=== PATIENT | female | born 1985 | race Caucasian/White ===

== ENCOUNTER 2016-12-20 16:47 | Emergency (ER) | payer MEDICAID ==
[~2016-12-20] VITALS: Ht 160 cm; Wt 84.3 kg
[~2016-12-20 16:47] MED LIST: ALBU8.5H5 INH; DOCU-131 PO; FEXO1TAB25 PO; FLUT100B INH; IBUP-1222 PO; OXYC-302 PO; OXYC-305 PO
[2016-12-20] MEDS ORDERED: SODIUM CHLORIDE FLUSH 10ML SYR IVF ONE (17:00)
[2016-12-20 17:24] LABS: HEMATOCRIT 36.4 % (34.6-47.8); HEMOGLOBIN 12.3 g/dL (11.7-16.4); WHITE BLOOD COUNT 12.7 x10^3/uL (3.4-10)
[2016-12-20 17:30] LABS: ASPARTATE AMINO TRANSFERASE 15 U/L (15-37); BLOOD UREA NITROGEN 12 mg/dL (7-18)
[2016-12-20] MEDS ORDERED: BACITRACIN ZINC OINT 500U/GM, 0.9 GM ONE (19:47)
[2016-12-20 20:02] VITALS: BP 110/72
== END 2016-12-20 20:04 | disposition home or self-care (01) ==
LOC: ED 18:44
DX: N30.01 Acute cystitis with hematuria (principal); J45.909 Unspecified asthma, uncomplicated; Z98.890 Other specified postprocedural states
CPT/HCPCS: 36415; 80053; 81001; 83690; 85025; 87086; 99284

== ENCOUNTER 2017-03-30 18:07 | Emergency (ER) | payer MEDICAID ==
[~2017-03-30] VITALS: Ht 157.5 cm; Wt 88.4 kg
[2017-03-30 18:08] VITALS: BP 130/70
[2017-03-30] MEDS ORDERED: IBUPROFEN 200 MG TABLET ONE (18:53)
[2017-03-30] MEDS ORDERED: IBUPROFEN 200 MG TABLET PO ONE (19:00)
== END 2017-03-30 20:02 | disposition home or self-care (01) ==
LOC: ED 19:55
DX: S83.91XA Sprain of unspecified site of right knee, initial encounter (principal); J45.909 Unspecified asthma, uncomplicated; Z88.0 Allergy status to penicillin; M19.90 Unspecified osteoarthritis, unspecified site; X58.XXXA Exposure to other specified factors, initial encounter; Y93.01 Activity, walking, marching and hiking; Y99.8 Other external cause status; Y92.89 Other specified places as the place of occurrence of the external cause
CPT/HCPCS: 99284

== ENCOUNTER 2018-01-18 10:23 | Emergency (ER) | payer MEDICAID ==
[~2018-01-18] VITALS: Ht 160 cm; Wt 92.4 kg
[2018-01-18 11:35] LABS: BASOPHILS # (AUTO) 0.02 x10^3/uL (0-0.1); BASOPHILS % (AUTO) 0 % (0-1); EOSINOPHILS # (AUTO) 0.36 x10^3/uL (0-0.4); EOSINOPHILS % (AUTO) 5 % (1-7); LYMPHOCYTES # (AUTO) 2.19 x10^3/uL (1-3.4); LYMPHOCYTES % (AUTO) 32 % (22-44); MD NO; MEAN CORPUSCULAR HEMOGLOBIN 28.6 pg (27.0-34.8); MEAN CORPUSCULAR HGB CONC 32.9 g/dL (32.4-35.8); MEAN CORPUSCULAR VOLUME 86.9 fL (80-100); MEAN PLATELET VOLUME 8.1 fL (7.4-10.4); MONOCYTES # (AUTO) 0.36 x10^3/uL (0.2-0.8); MONOCYTES % (AUTO) 5 % (2-9); NEUTROPHILS # (AUTO) 3.96 x10^3/uL (1.8-6.8); NEUTROPHILS % (AUTO) 57 % (42-75); PLATELET COUNT 230 x10^3/uL (130-400); RED BLOOD COUNT 4.57 x10^6/uL (3.82-5.3); RED CELL DISTRIBUTION WIDTH 13.9 % (9.6-15.2)
[2018-01-18 12:06] LABS: ALBUMIN 3.5 g/dL (3.4-5.0); ANION GAP 5 mmol/L (5-15); CALCIUM 8.7 mg/dL (8.5-10.1); CHLORIDE 109 mmol/L (98-107); CREATININE 0.64 mg/dL (0.55-1.02)
[2018-01-18 12:45] VITALS: BP 104/72
== END 2018-01-18 13:10 | disposition home or self-care (01) ==
LOC: ED 12:16
DX: B34.9 Viral infection, unspecified (principal); G40.909 Epilepsy, unspecified, not intractable, without status epilepticus; J45.909 Unspecified asthma, uncomplicated; Z87.891 Personal history of nicotine dependence
CPT/HCPCS: 36415; 71046; 80048; 82040; 85025; 99284

== ENCOUNTER 2018-03-12 06:42 | Emergency (ER) | payer SELFPAY ==
[~2018-03-12] VITALS: Ht 160 cm; Wt 86.0 kg
[2018-03-12 06:51] VITALS: BP 102/72
== END 2018-03-12 07:17 | disposition home or self-care (01) ==
LOC: ED 07:00
DX: N76.4 Abscess of vulva (principal); J45.909 Unspecified asthma, uncomplicated; Z88.0 Allergy status to penicillin
CPT/HCPCS: 99283

== ENCOUNTER 2018-03-14 06:23 | Emergency (ER) | payer SELFPAY ==
--- NOTE | 2018-03-14 06:30 | NUR ---
PT TO ROOM AND AWAITING ERP AND ORDERS.
--- NOTE | 2018-03-14 06:56 | NUR ---
received report from Juan F. pt laying on gurney awake & calm, responds approp to staff, NAD, comfort measures provided, call light within reach.
[2018-03-14] MEDS ORDERED: IBUPROFEN 600 MG TABLET PO ONE (07:00)
[2018-03-14] MEDS ORDERED: IBUPROFEN 200 MG TABLET ONE (07:07)
--- NOTE | 2018-03-14 07:55 | NUR ---
Patient given splint, crutches & discharge instructions and they have confirmed that they understand the instructions. Patient ambulatory with crutch use. Addendum: 03/14/18 at 0800 by [email or web address] Patient given splint, crutches & discharge instructions and they have confirmed that they understand the instructions. Patient refused crutches- ambulatory with a steady gait without crutch use.
== END 2018-03-14 08:18 | disposition home or self-care (01) ==
LOC: ED 07:50
DX: S93.402A Sprain of unspecified ligament of left ankle, initial encounter (principal); J45.909 Unspecified asthma, uncomplicated; X50.1XXA Overexertion from prolonged static or awkward postures, initial encounter; Y93.89 Activity, other specified; Y92.488 Other paved roadways as the place of occurrence of the external cause; Y99.8 Other external cause status
CPT/HCPCS: 99283

== ENCOUNTER 2018-03-20 09:12 | Emergency (ER) | payer SELFPAY ==
[~2018-03-20] VITALS: Ht 165.1 cm; Wt 86.0 kg
[2018-03-20 09:51] VITALS: BP 116/80
== END 2018-03-20 09:53 | disposition home or self-care (01) ==
LOC: ED 09:14
DX: J45.909 Unspecified asthma, uncomplicated (principal); B34.9 Viral infection, unspecified; R42 Dizziness and giddiness; J00 Acute nasopharyngitis [common cold]; G40.909 Epilepsy, unspecified, not intractable, without status epilepticus; Z88.0 Allergy status to penicillin
CPT/HCPCS: 99283

== ENCOUNTER 2018-10-26 12:04 | Emergency (ER) | payer MEDICAID ==
[~2018-10-26] VITALS: Ht 160 cm; Wt 94.0 kg
[2018-10-26 13:03] LABS: BASOPHILS # (AUTO) 0.04 x10^3/uL (0-0.1); BASOPHILS % (AUTO) 0 % (0-1); EOSINOPHILS # (AUTO) 0.21 x10^3/uL (0-0.4); EOSINOPHILS % (AUTO) 2 % (1-7); LYMPHOCYTES # (AUTO) 2.34 x10^3/uL (1-3.4); LYMPHOCYTES % (AUTO) 24 % (22-44); MD NO; MEAN CORPUSCULAR HEMOGLOBIN 29.3 pg (27.0-34.8); MEAN CORPUSCULAR HGB CONC 33.6 g/dL (32.4-35.8); MEAN CORPUSCULAR VOLUME 87.3 fL (80-100); MEAN PLATELET VOLUME 8.1 fL (7.4-10.4); MONOCYTES # (AUTO) 0.38 x10^3/uL (0.2-0.8); MONOCYTES % (AUTO) 4 % (2-9); NEUTROPHILS # (AUTO) 6.73 x10^3/uL (1.8-6.8); NEUTROPHILS % (AUTO) 69 % (42-75); PLATELET COUNT 289 x10^3/uL (130-400); RED BLOOD COUNT 4.81 x10^6/uL (3.82-5.3)
[2018-10-26 13:13] LABS: ALBUMIN 3.8 g/dL (3.4-5.0); ANION GAP 9 mmol/L (5-15); CALCIUM 9.2 mg/dL (8.5-10.1); CHLORIDE 110 mmol/L (98-107); CREATININE 0.75 mg/dL (0.55-1.02)
[2018-10-26 15:17] VITALS: BP 136/95
== END 2018-10-26 15:20 | disposition home or self-care (01) ==
LOC: ED 14:46
DX: L03.011 Cellulitis of right finger (principal)
CPT/HCPCS: 36415; 80048; 82040; 85025; 99284

== ENCOUNTER 2019-02-03 16:49 | Emergency (ER) | payer MEDICAID ==
[~2019-02-03] VITALS: Ht 160 cm; Wt 101.7 kg
[2019-02-03 17:07] VITALS: BP 138/79
[2019-02-03] MEDS ORDERED: HYDROcodone/APAP 5/325 TABLET ONE (18:13)
--- NOTE | 2019-02-03 18:16 | NUR ---
MEDICATED PER EMAR FOR RIGHT KNEE PAIN AT 6/10
[2019-02-03] MEDS ORDERED: HYDROcodone/APAP 5/325 TABLET PO ONE (18:30)
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
== END 2019-02-03 18:40 | disposition home or self-care (01) ==
LOC: ED 18:30
DX: M25.561 Pain in right knee (principal); J45.909 Unspecified asthma, uncomplicated; G40.909 Epilepsy, unspecified, not intractable, without status epilepticus
CPT/HCPCS: 99283

== ENCOUNTER 2019-02-11 23:33 | Emergency (ER) | payer MEDICAID ==
[~2019-02-11] VITALS: Ht 160 cm; Wt 100.0 kg
--- NOTE | 2019-02-11 23:47 | NUR ---
MEAGAN BENJAMIN. SOB THAT STARTED THIS MORNING. COUGH X2-3 DAYS. USED HOME INHALER AND DIDN'T HELP. 1 BREAHTING TREATMENT GIVEN BY CASSIDY WITH IMPORVEMENT.
[2019-02-11] MEDS ORDERED: IBUPROFEN 600 MG TABLET ONE (23:49)
[2019-02-11] MEDS ORDERED: DEXAMETHASONE 4 MG TABLET ONE (23:49)
[2019-02-12] MEDS ORDERED: DEXAMETHASONE 4 MG TABLET PO ONE
[2019-02-12] MEDS ORDERED: IBUPROFEN 600 MG TABLET PO ONE
--- NOTE | 2019-02-12 00:01 | NUR ---
BREAK RN: PT RESTING CALMY ON GURNEY, DENIES NEEDS AT THIS TIME, RESPIRATIONS EVEN AND UNLABORED, CALL LIGHT WITHIN REACH. AWAITING LAB ABD XRAY RESULT
[2019-02-12 00:06] VITALS: BP 112/69
[2019-02-12 00:10] LABS: RAPID INFLUENZA A Negative (Negative); RAPID INFLUENZA B Negative (Negative)
== END 2019-02-12 00:59 | disposition home or self-care (01) ==
LOC: ED 02-12 00:22
DX: J20.9 Acute bronchitis, unspecified (principal); R06.00 Dyspnea, unspecified; R05 Cough; Z72.9 Problem related to lifestyle, unspecified; J02.9 Acute pharyngitis, unspecified
CPT/HCPCS: 71046; 87081; 87400; 87880; 99284

== ENCOUNTER 2019-02-13 18:07 | Emergency (ER) | payer MEDICAID ==
[~2019-02-13] VITALS: Ht 160 cm; Wt 102.6 kg
[2019-02-13] MEDS ORDERED: PROMETHAZINE 25 MG/ML, 1ML IM ONE (18:47)
[2019-02-13] MEDS ORDERED: PROMETHAZINE 25 MG/ML, 1ML ONE (18:49)
--- NOTE | 2019-02-13 18:59 | NUR ---
PT. WALKED TO THE ER FOR EVALUATION AND TREATMENT OF HER NAUSEA X 24 HOURS. PT. IS PINK, WARM AND DRY. LUNGS ARE DIMINISHED IN THE BASES. PT. WAS JUST SEEN AND EVALUATED FOR HER COUGH AND DIAGNOSED WITH BRONCHITIS STATED BY HER. PT.'S RESP ARE EUPNEIC. SATS ARE 96% ON ROOM AIR. PT.'S ABD. IS SOFT AND FLAT WITH BS + X QUADS. PT. WAS MEDICATED FOR NAUSEA. NO VOMITING AT THIS TIME. PULSES ARE +2 THROUGHOUT. CAP REFILL IS BRISK, LESS THAN 3 SECONDS. SIDERAILS REMAIN UP X 2 WITH THE CALL LIGHT IN PLACE. PT. WAS GIVEN A BLANKET FOR WARMTH.
--- NOTE | 2019-02-13 19:49 | NUR ---
PT. STATES RELIEF FROM THE PHENERGAN. PT. IS RESTING WITHOUT CONCERNS. PT. WAS GIVEN A PO CHALLENGE.
[2019-02-13 19:50] VITALS: BP 110/78
== END 2019-02-13 20:57 | disposition home or self-care (01) ==
LOC: ED 18:50
DX: R11.2 Nausea with vomiting, unspecified (principal); R05 Cough; J45.909 Unspecified asthma, uncomplicated; I10 Essential (primary) hypertension; F17.200 Nicotine dependence, unspecified, uncomplicated
CPT/HCPCS: 96372; 99283; J2550

== ENCOUNTER 2019-03-13 17:56 | Emergency (ER) | payer MEDICAID ==
[~2019-03-13] VITALS: Ht 160 cm; Wt 100.2 kg
--- NOTE | 2019-03-13 18:29 | NUR ---
PT HERE WITH C/O RIGHT MIDDLE FINGER SWELLING, PT STATES SHE THINKS SHE HAS "CELLULITIS."
[2019-03-13 18:32] VITALS: BP 98/74
--- NOTE | 2019-03-13 19:19 | NUR ---
Patient/Caregiver given discharge instructions and they have confirmed that they understand the instructions. Patient ambulatory with steady gait.
== END 2019-03-13 19:23 | disposition home or self-care (01) ==
LOC: ED 18:18
DX: M79.641 Pain in right hand (principal); M79.644 Pain in right finger(s); I10 Essential (primary) hypertension; J45.909 Unspecified asthma, uncomplicated; G40.909 Epilepsy, unspecified, not intractable, without status epilepticus; Z72.9 Problem related to lifestyle, unspecified; Z86.69 Personal history of other diseases of the nervous system and sense organs
CPT/HCPCS: 29130; 99283

== ENCOUNTER 2019-03-14 02:28 | Emergency (ER) | payer MEDICAID ==
[~2019-03-14] VITALS: Ht 160 cm; Wt 101.0 kg
[2019-03-14 02:30] VITALS: BP 145/77
--- NOTE | 2019-03-14 02:35 | NUR ---
ERP IN ROOM TO EVAL PT AND DISCUSS POC.
--- NOTE | 2019-03-14 02:39 | NUR ---
PT C/O RIGHT MIDDLE FINGER PAIN THAT WAS TREATED EARLIER TODAY. REPORTS INCREASED INFLAMMATION AND NUMBNESS. PT ABLE TO BEND FINGER WITHOUT PAIN. SKIN WARM DRY AND INTACT, CAPILLARY REFILL LESS THAN 3 SECONDS IN AFFECTED FINGER. PT DENIES OTHER C/O AT THIS TIME. PT CONENCTED TO SPO2 MONTIORING. CALL LIGHT WITHIN REACH, ALL SAFETY MEASURES IN PLACE.
== END 2019-03-14 03:52 ==
LOC: ED 02:58
DX: M79.644 Pain in right finger(s) (principal); I10 Essential (primary) hypertension; J45.909 Unspecified asthma, uncomplicated; Z72.9 Problem related to lifestyle, unspecified
CPT/HCPCS: 29105; 99281; 99283

== ENCOUNTER 2019-03-15 21:30 | Emergency (ER) | payer MEDICAID ==
[~2019-03-15] VITALS: Ht 160 cm; Wt 101.5 kg
[2019-03-15 21:32] VITALS: BP 142/85
== END 2019-03-15 22:31 | disposition home or self-care (01) ==
LOC: ED 22:05
DX: L03.011 Cellulitis of right finger (principal); I10 Essential (primary) hypertension
CPT/HCPCS: 99283

== ENCOUNTER 2019-04-14 22:07 | Emergency (ER) | payer MEDICAID ==
[~2019-04-14] VITALS: Ht 160 cm; Wt 101.0 kg
[2019-04-14 23:53] LABS: HCG UR SG 1.031 (1.003-1.030)
[2019-04-14 23:54] LABS: MICROSCOPIC INDICATED
--- NOTE | 2019-04-14 23:57 | NUR ---
PT TO ROOM FROM LOBBY
[2019-04-15 00:04] LABS: CULTURE INDICATED? YES
[2019-04-15 01:00] VITALS: BP 125/84
== END 2019-04-15 01:03 | disposition home or self-care (01) ==
LOC: ED 04-15 01:02
DX: R10.2 Pelvic and perineal pain (principal); B37.3 Candidiasis of vulva and vagina; I10 Essential (primary) hypertension; J45.909 Unspecified asthma, uncomplicated
CPT/HCPCS: 81001; 81025; 87086; 99283

== ENCOUNTER 2019-05-02 14:28 | Emergency (ER) | payer MEDICAID ==
[~2019-05-02] VITALS: Ht 160 cm; Wt 99.2 kg
--- NOTE | 2019-05-02 15:25 | NUR ---
ASLEEP ON GURNEY IN RT LATERAL POSITION, SNORING RESPS NOTED, SIDE RAILS UP X 2, BOYFRIEND IN ROOM
[2019-05-02] MEDS ORDERED: LEVE500T8 PO (16:14)
[2019-05-02] MEDS ORDERED: MONT10TA11 PO (16:14)
[2019-05-02] MEDS ORDERED: PRENATAL VITAMIN (16:21)
[2019-05-02 16:28] VITALS: BP 105/83
== END 2019-05-02 17:23 | disposition home or self-care (01) ==
LOC: ED 16:50
DX: R53.1 Weakness (principal); R51 Headache; Z90.49 Acquired absence of other specified parts of digestive tract
CPT/HCPCS: 99281

== ENCOUNTER 2019-05-16 19:52 | Emergency (ER) | payer MEDICAID ==
[~2019-05-16] VITALS: Ht 160 cm; Wt 92.0 kg
[~2019-05-16 19:52] MED LIST changes: +LEVE500T8 PO; +MONT10TA11 PO; +PRENATAL VITAMIN
[2019-05-16] MEDS ORDERED: KETOROLAC 60 MG/2 ML ONE (20:03)
--- NOTE | 2019-05-16 20:08 | NUR ---
PT HAD VERY SPECIFIC GUIDELINES FOR INJECTION. PT STATED SHE NEEDED TO TAKE THREE DEEP BREATHES, THEN HOLD HER BREATH, AND THEN WATCH THE INJECTION. THIS RN OBLIGED WITH HER REQUEST. MEDICATION GIVEN WITHOUT INCIDENT. STATES TO GIVE PT TAXI VOUCHER HOME. UNFORTUNATELY DUE TO CURRENT PANDEMIC TAXIS ARE NOT RUNNING. THIS WAS DISCUSSED WITH PT. SHE STATES HER SPOUSE WILL COME TO WALK HER HOME. SHE DECLINED A BUS VOUCHER.
[2019-05-16 20:22] VITALS: BP 129/74
[2019-05-16] MEDS ORDERED: KETOROLAC 30 MG/1 ML IM ONE (20:30)
== END 2019-05-16 21:21 | disposition home or self-care (01) ==
LOC: ED 21:10
DX: G44.219 Episodic tension-type headache, not intractable (principal); I10 Essential (primary) hypertension; Z90.89 Acquired absence of other organs; Z86.73 Personal history of transient ischemic attack (TIA), and cerebral infarction without residual deficits
CPT/HCPCS: 96372; 99283; J1885

== ENCOUNTER 2019-05-24 16:40 | Emergency (ER) | payer MEDICAID ==
[~2019-05-24] VITALS: Ht 160 cm; Wt 100.6 kg
[2019-05-24 16:46] VITALS: BP 129/57
--- NOTE | 2019-05-24 18:36 | NUR ---
COAT TAILOR: PT TO ROOM FROM LOBBY VIA W/C
== END 2019-05-24 19:41 | disposition home or self-care (01) ==
LOC: ED 19:02
DX: S83.412A Sprain of medial collateral ligament of left knee, initial encounter (principal); I10 Essential (primary) hypertension; J45.909 Unspecified asthma, uncomplicated; Z90.89 Acquired absence of other organs; W01.0XXA Fall on same level from slipping, tripping and stumbling without subsequent striking against object, initial encounter; Y93.89 Activity, other specified; Y92.89 Other specified places as the place of occurrence of the external cause; Y99.8 Other external cause status
CPT/HCPCS: 99283

== ENCOUNTER 2019-06-21 23:26 | Emergency (ER) | payer MEDICAID ==
[~2019-06-21] VITALS: Ht 160 cm; Wt 98.9 kg
[2019-06-22 01:07] VITALS: BP 116/83
== END 2019-06-22 01:18 | disposition home or self-care (01) ==
LOC: ED 23:40
DX: J22 Unspecified acute lower respiratory infection (principal); B34.9 Viral infection, unspecified; R00.0 Tachycardia, unspecified; I10 Essential (primary) hypertension; J45.909 Unspecified asthma, uncomplicated
CPT/HCPCS: 71045; 93005; 99283

== ENCOUNTER 2019-07-27 18:52 | Emergency (ER) | payer MEDICAID ==
[~2019-07-27] VITALS: Ht 160 cm; Wt 99.9 kg
[2019-07-27 18:59] VITALS: BP 131/90
[2019-07-27] MEDS ORDERED: BACITRACIN OINT 500U/GM, 28GM EXT ONE (20:30)
[2019-07-27] MEDS ORDERED: NEOSPORIN OINT. PKT 1 PACKET ONE (20:31)
== END 2019-07-27 20:54 | disposition home or self-care (01) ==
LOC: ED 20:15
DX: S90.812A Abrasion, left foot, initial encounter (principal); I10 Essential (primary) hypertension; F17.290 Nicotine dependence, other tobacco product, uncomplicated; Z90.89 Acquired absence of other organs; X58.XXXA Exposure to other specified factors, initial encounter; Y93.89 Activity, other specified; Y92.89 Other specified places as the place of occurrence of the external cause; Y99.8 Other external cause status
CPT/HCPCS: 99281; 99282; 99406

== ENCOUNTER 2019-11-21 11:29 | Emergency (ER) | payer MEDICAID ==
[~2019-11-21] VITALS: Ht 160 cm; Wt 98.6 kg
[2019-11-21 12:17] LABS: BASOPHILS # (AUTO) 0.06 x10^3/uL (0-0.1); BASOPHILS % (AUTO) 1 % (0-1); EOSINOPHILS # (AUTO) 0.82 x10^3/uL (0-0.4); EOSINOPHILS % (AUTO) 8 % (1-7); LYMPHOCYTES % (AUTO) 32 % (22-44); MD NO; MEAN CORPUSCULAR HEMOGLOBIN 28.5 pg (27.0-34.8); MEAN CORPUSCULAR HGB CONC 32.4 g/dL (32.4-35.8); MEAN PLATELET VOLUME 8.2 fL (7.4-10.4); MONOCYTES % (AUTO) 5 % (2-9); NEUTROPHILS # (AUTO) 5.27 x10^3/uL (1.8-6.8); NEUTROPHILS % (AUTO) 54 % (42-75); PLATELET COUNT 242 x10^3/uL (130-400); RED BLOOD COUNT 4.71 x10^6/uL (3.82-5.3); RED CELL DISTRIBUTION WIDTH 13.9 % (9.6-15.2)
[2019-11-21 12:41] LABS: ALANINE AMINOTRANSFERASE 27 U/L (12-78); ALBUMIN 3.6 g/dL (3.4-5.0); ANION GAP 7 mmol/L (5-15); CALCIUM 9.1 mg/dL (8.5-10.1); CHLORIDE 114 mmol/L (98-107)
[2019-11-21 12:46] LABS: ALKALINE PHOSPHATASE 101 U/L (45-117); BILIRUBIN,TOTAL 0.6 mg/dL (0.2-1.0); CREATININE 0.68 mg/dL (0.55-1.02); TOTAL PROTEIN 7.8 g/dL (6.4-8.2)
[2019-11-21 14:00] LABS: MICROSCOPIC INDICATED
--- NOTE | 2019-11-21 14:01 | NUR ---
PT RESTING IN BED, PT AO X4 AND ON MONITOR. PT DENIED WANTS OR NEEDS AT THIS TIME. RN WILL CONTINUE TO MONITOR PT VSS
[2019-11-21 15:50] VITALS: BP 132/77
== END 2019-11-21 15:52 | disposition home or self-care (01) ==
LOC: ED 13:42
DX: N30.00 Acute cystitis without hematuria (principal); R10.2 Pelvic and perineal pain; I10 Essential (primary) hypertension; J45.909 Unspecified asthma, uncomplicated; M19.90 Unspecified osteoarthritis, unspecified site
CPT/HCPCS: 36415; 76830; 80053; 81001; 84703; 85025; 87086; 87147; 99284

== ENCOUNTER 2020-01-26 22:41 | Emergency (ER) | payer MEDICAID ==
[~2020-01-26] VITALS: Ht 160 cm; Wt 101.5 kg
--- NOTE | 2020-01-26 23:52 | NUR ---
PT TO CT AND BACK AT THIS TIME. DENIES ANY NEEDS.
[2020-01-27] MEDS ORDERED: IBUPROFEN 600 MG TABLET PO ONE
[2020-01-27] MEDS ORDERED: PROCHLORPERAZINE 10MG TABLET PO ONE
[2020-01-27] MEDS ORDERED: IBUPROFEN 600 MG TABLET ONE (00:09)
[2020-01-27] MEDS ORDERED: PROCHLORPERAZINE 10MG TABLET ONE (00:09)
--- NOTE | 2020-01-27 00:14 | NUR ---
THIS FLOAT RN AT BEDSIDE TO MEDICATE PT ORDERED ON EMAR.
[2020-01-27 00:33] VITALS: BP 101/50
--- NOTE | 2020-01-27 00:34 | NUR ---
PT REPORTS IMPROVED H/A. VERBALIZED UNDERSTANDING TO DC INSTRUCTIONS. AMBULATORY TO CHECKOUT C STEADY GAIT. VSS.
== END 2020-01-27 00:36 | disposition home or self-care (01) ==
LOC: ED 23:33
DX: S06.0X0A Concussion without loss of consciousness, initial encounter (principal); M54.2 Cervicalgia; H54.7 Unspecified visual loss; W01.0XXA Fall on same level from slipping, tripping and stumbling without subsequent striking against object, initial encounter; Y93.89 Activity, other specified; Y92.098 Other place in other non-institutional residence as the place of occurrence of the external cause; Y99.8 Other external cause status
CPT/HCPCS: 70450; 99284; Q0164

== ENCOUNTER 2020-04-01 20:42 | Emergency (ER) | payer MEDICAID ==
[~2020-04-01] VITALS: Ht 160 cm; Wt 102.4 kg
[~2020-04-01 20:42] MED LIST changes: -MONT10TA11 PO; +MONT10TA17 PO; -OXYC-302 PO; +OXYC1TAB14 PO
[2020-04-01 20:45] VITALS: BP 123/89
== END 2020-04-01 21:47 | disposition home or self-care (01) ==
LOC: ED 21:00
DX: K08.89 Other specified disorders of teeth and supporting structures (principal); I10 Essential (primary) hypertension; J45.909 Unspecified asthma, uncomplicated; Z88.0 Allergy status to penicillin
CPT/HCPCS: 99283

== ENCOUNTER 2020-05-03 17:37 | Emergency (ER) | payer MEDICAID ==
[~2020-05-03] VITALS: Ht 160 cm; Wt 100.9 kg
[2020-05-03 17:41] VITALS: BP 130/64
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
--- NOTE | 2020-05-03 18:05 | NUR ---
PT DENIES BEING IN AN ABUSIVE RELATIONSHIP.
[2020-05-03] MEDS ORDERED: ACETAMINOPHEN 500 MG TABLET PO ONE (18:30)
[2020-05-03] MEDS ORDERED: ACETAMINOPHEN 500 MG TABLET ONE (18:33)
== END 2020-05-03 18:40 | disposition home or self-care (01) ==
LOC: ED 18:01
DX: S00.83XA Contusion of other part of head, initial encounter (principal); I10 Essential (primary) hypertension; Z90.89 Acquired absence of other organs; X58.XXXA Exposure to other specified factors, initial encounter; Y93.89 Activity, other specified; Y92.89 Other specified places as the place of occurrence of the external cause; Y99.8 Other external cause status
CPT/HCPCS: 99282

== ENCOUNTER 2020-05-06 22:03 | Emergency (ER) | payer MEDICAID ==
[~2020-05-06] VITALS: Ht 160 cm; Wt 101.1 kg
[2020-05-06 22:05] VITALS: BP 125/79
--- NOTE | 2020-05-06 22:20 | NUR ---
Pt ambulated to bathroom. Steady equal gait. UA collected and sent to lab. Pt reports abdominal pain that feels like period cramps that started tonight. Pt denies vaginal bleeding or discharge. LMP 02/12/2020. Positive home test 05/04/2020. Hx ectopic , asthma, cerebral palsy, chronic bronchitis, tonsilectomy, vertigo.
[2020-05-06 22:37] LABS: MICROSCOPIC NOT IND
[2020-05-06 22:45] LABS: BASOPHILS % (AUTO) 1 % (0-1); EOSINOPHILS % (AUTO) 3 % (1-7); LYMPHOCYTES % (AUTO) 26 % (22-44); MD NO; MEAN CORPUSCULAR HEMOGLOBIN 29.5 pg (27.0-34.8); MEAN CORPUSCULAR HGB CONC 33.6 g/dL (32.4-35.8); MEAN PLATELET VOLUME 8.2 fL (7.4-10.4); MONOCYTES % (AUTO) 4 % (2-9); NEUTROPHILS % (AUTO) 65 % (42-75); PLATELET COUNT 222 x10^3/uL (130-400); RED BLOOD COUNT 4.19 x10^6/uL (3.82-5.3); RED CELL DISTRIBUTION WIDTH 14.5 % (9.6-15.2)
--- NOTE | 2020-05-06 22:51 | NUR ---
Report to CAROLYN Gage.
[2020-05-06 22:55] LABS: ALANINE AMINOTRANSFERASE 29 U/L (12-78); ALBUMIN 2.8 g/dL (3.4-5.0); ANION GAP 8 mmol/L (5-15); CALCIUM 8.6 mg/dL (8.5-10.1); CHLORIDE 107 mmol/L (98-107); CREATININE 0.62 mg/dL (0.55-1.02)
[2020-05-06 23:12] LABS: ALKALINE PHOSPHATASE 80 U/L (45-117); BILIRUBIN,TOTAL 0.1 mg/dL (0.2-1.0); TOTAL PROTEIN 6.7 g/dL (6.4-8.2)
--- NOTE | 2020-05-06 23:16 | NUR ---
Pt calm in bed, playing games on her phone. Warm blanket given. Waiting on US.
== END 2020-05-07 00:53 | disposition home or self-care (01) ==
LOC: ED 22:33
DX: O26.891 Other specified pregnancy related conditions, first trimester (principal); R10.32 Left lower quadrant pain; R10.31 Right lower quadrant pain; I10 Essential (primary) hypertension; J45.909 Unspecified asthma, uncomplicated; M19.90 Unspecified osteoarthritis, unspecified site; Z90.89 Acquired absence of other organs; Z88.0 Allergy status to penicillin; Z88.2 Allergy status to sulfonamides; Z90.722 Acquired absence of ovaries, bilateral; Z3A.13 13 weeks gestation of pregnancy
CPT/HCPCS: 36415; 76830; 80053; 81003; 84702; 85025; 99284